=== PATIENT | female | born 1995 | race Caucasian/White ===

== ENCOUNTER 2019-11-30 12:33 | Emergency (ER) | payer OTHER, SELFPAY ==
[2019-11-30 12:40] VITALS: BP 104/72; PULSE 124; RESP 20; TEMP 38.6; O2SAT 100
--- NOTE | 2019-11-30 13:23 | ED.GENADULT ---
HPI - General Adult General Chief complaint: Upper Respiratory Infection Stated complaint: Cold/ Flu symptoms Time Seen by Provider: 11/30/19 13:23 Source: patient and RN notes reviewed Mode of arrival: ambulatory Limitations: no limitations History of Present Illness HPI narrative: This is a 24 years old female presents to the office for an evaluation of flu like symptoms since last night. Symptoms include head congestion, feverish, cough, and scratchy throat. Her boy friend test positive for influenza A in the office today. She admits to smoking half a pack a day. No treatment prior to arrival, patient requests a ibuprofen prescription because she is unemployed. Related Data Allergies Allergy/AdvReac Type Severity Reaction Status Date / Time Penicillins Allergy Unknown Hives / Verified 11/30/19 12:58 Red Face tramadol Allergy Unknown Nausea Verified 11/30/19 12:58 Review of Systems Review of Systems: Narrative: CONSTITUTIONAL:Reports fever, chills, sweats. ENT: Reports rhinorrhea, congestion, sore throat CARDIOVASCULAR: Denies chest pain RESPIRATORY: Reports cough GASTROINTESTINAL: Denies abdominal pain, nausea, vomiting, diarrhea. GENITOURINARY: Denies urinary symptoms or discharge SKIN: Denies rash MUSCULOSKELETAL: Denies acute back pain NEUROLOGIC: Denies lightheaded PMFSH Surgical History Surgical History (Updated 11/30/19 @ 13:24 by APOLINAR Martinez) H/O section Hx of appendectomy Social History Social History (Updated 11/30/19 @ 13:30 by APOLINAR Martinez) Smoking status: Current every day smoker Comments At time of signature, I agree with nursing past medical, surgical, social and family history. There is no relevant family history pertinent to the presenting complaint. Exam Narrative: Exam Narrative: GENERAL: This is a well-nourished, well-developed patient, in no apparent distress. EYES: Sclera clear/white. Vision is grossly intact. EARS: External ears normal, auditory canals clear and without drainage, TMs normal without perforation. Hearing grossly intact. NOSE: External nose normal with no obvious nasal discharge, nares without redness, no rhinorrhea. THROAT: Mucous membranes moist, posterior pharynx pink with drainage NECK: Neck supple, non-tender without lymphadenopathy, masses or thyromegaly. CARDIOVASCULAR: Regular rate and rhythm without murmurs, gallops, or rubs. RESPIRATORY: Clear to auscultation. Breath sounds equal bilaterally. No wheezes, rales, or rhonchi. Occasional cough noted during examination. GASTROINTESTINAL: Abdomen soft, non-tender, nondistended. Bowel sounds are active. No hepato-splenomegaly, or palpable masses. No guarding. SKIN: warm, intact with no suspicious lesions or rash, good texture and turgor. NEURO: awake, alert, and oriented to person, place and time. There were no obvious focal neurologic abnormalities. Steady gait Zhou Coma Scale Eye Opening: Spontaneous 4 Zhou Coma Scale Motor: Obeys Commands 6 [place] Coma Scale Verbal: Oriented 5 Course Vital Signs Vital signs: Vital Signs Temperature 101.5 F H 11/30/19 12:40 Pulse Rate 124 H 11/30/19 12:40 Respiratory Rate 11/30/19 12:40 Blood Pressure 104/72 11/30/19 12:40 Pulse Oximetry 100 11/30/19 12:40 Temperature 101.5 F H 11/30/19 12:40 Pulse Rate 124 H 11/30/19 12:40 Respiratory Rate 11/30/19 12:40 Blood Pressure 104/72 11/30/19 12:40 Pulse Oximetry 100 11/30/19 12:40 Medical Decision Making MDM Narrative Medical decision making narrative: Discharge instructions reviewed with patient, as well as provided in writing per nursing staff. The instructions also include specific and strict return/GO TO THE ER as well as f/u information. All questions have been answered, and the patient deny any further questions with discharge and discharge plan. Differential Diagnosis Differential Diagnosis: pneumonia, Allergic Rhinitis, Upper respirat
== END 2019-11-30 13:35 | disposition home or self-care (01) ==
PROVIDERS: Emergency Provider Nurse Practitioner
DX: J06.9 Acute upper respiratory infection, unspecified (principal)
CPT/HCPCS: 87804; 99213; G0463

== ENCOUNTER 2020-02-02 17:26 | Emergency (ER) | payer OTHER, SELFPAY ==
--- NOTE | 2020-02-02 17:40 | PC.NURSE ---
pt was here with pelvic pain, and was under the impression that we could do an ultrasound here, but when i informed pt that the provider would see her and if she thinks that she may need to go to the er, we could get her transferred to a local er. pt decided to leave while i was getting her blood pressure, she states that she would just go to the er. pt left the triage room ambulatory and stable. left without being seen or really triaged.
== END 2020-02-02 17:40 | disposition left against medical advice (07) ==
PROVIDERS: PCP Physician Assistant
DX: Z53.21 Procedure and treatment not carried out due to patient leaving prior to being seen by health care provider (principal)
CPT/HCPCS: 99199

== ENCOUNTER 2020-11-28 19:36 | Emergency (ER) | payer OTHER, SELFPAY ==
[2020-11-28 19:40] VITALS: BP 148/88; PULSE 92; RESP 18; TEMP 36.1; O2SAT 100
--- NOTE | 2020-11-28 20:30 | PC.NURSE ---
pt refused to havr IV or Blood Drawn, aware, po meds ordered.
[2020-11-28] MEDS: HYDROcodone/acetaminophen (*CRX) 5-325 MG TABLET 1 TAB PO (20:33)
[2020-11-28] MEDS: ONDANSETRON HCL ODT 4 MG TABLET PO (20:34)
--- NOTE | 2020-11-28 20:39 | ED.GENADULT ---
HPI - General Adult General Chief complaint: Abdominal Pain Stated complaint: abd pain, tooth abscess Time Seen by Provider: 11/28/20 19:39 Source: patient Mode of arrival: ambulatory Limitations: no limitations History of Present Illness HPI narrative: Patient is a 25-year-old female who presents to emergency department for evaluation of abdominal pain and dental pain patient has been having dental pain along the left lower jawline with swelling for the last several days noting history of gross dental decay has not taken anything for her symptoms also noting for the last couple of days having some GI upset. Patient denies vomiting diarrhea patient does note constipation. Patient notes just prior to arrival she had passed some gas with improvement of her discomfort. On arrival patient is refusing IV or any blood work and does not wish for this at this time. Related Data Allergies Allergy/AdvReac Type Severity Reaction Status Date / Time Penicillins Allergy Unknown Hives / Verified 11/28/20 19:41 Red Face tramadol Allergy Unknown Nausea Verified 11/28/20 19:41 Review of Systems Review of Systems: All systems reviewed & are unremarkable except as noted in HPI and below PMFSH Surgical History Surgical History H/O section Hx of appendectomy Social History Social History Smoking status: Current every day smoker Exam Narrative: Exam Narrative: GENERAL: Well-appearing, well-nourished, and in no acute distress. HEAD: Normocephalic, atraumatic. EYES: PERRLA and EOMI. ENT: Nares clear, no rhinorrhea or epistaxis. Mucous membranes moist. Gross dental caries with slight swelling along the left lower jawline. NECK: Supple. No adenopathy or masses. CHEST: Clear to auscultation. No respiratory distress. No wheezes rales or rhonchi HEART: Regular rate and rhythm. No murmur heard. Normal peripheral pulses. ABDOMEN: Soft, mild tenderness of the abdomen no rebound or guarding, nondistended EXTREMITIES: Normal range of motion. No edema. SKIN: Warm, dry, no rash. NEURO: No focal deficits. Alert and oriented x3. Cranial nerves II through XII grossly intact PSYCH: Normal mood and affect. Course Course Emergency Course: Patient evaluated the emergency department for dental abscess abdominal pain patient refused any further evaluation such as blood work or IV the patient prefers to go home noting that after she passed gas she had felt better patient will be treated for dental abscess and potential for urinary tract infection patient is afebrile nontoxic-appearing no distress Vital Signs Vital signs: Vital Signs Temperature 97.0 F L 11/28/20 19:40 Pulse Rate 92 11/28/20 19:40 Respiratory Rate 18 11/28/20 19:40 Blood Pressure 148/88 H 11/28/20 19:40 Pulse Oximetry 100 11/28/20 19:40 Temperature 97.0 F L 11/28/20 19:40 Pulse Rate 92 11/28/20 19:40 Respiratory Rate 18 11/28/20 19:40 Blood Pressure 148/88 H 11/28/20 19:40 Pulse Oximetry 100 11/28/20 19:40 Medical Decision Making MDM Narrative Medical decision making narrative: Patients pain and complaint coupled with physical findings are consistent with dentalgia. There are no focal signs of space occupying lesions that are compromising to the airway. The floor of the mouth is soft with no signs of Lb Angina. Patient is without trismus or drooling and able to swallow secretions. Patient is felt appropriate for discharge home with dental follow up. Will also be treated for urinary tract infection Vital Signs Vital Signs: Vital Signs Temperature 97.0 F L 11/28/20 19:40 Pulse Rate 92 11/28/20 19:40 Respiratory Rate 18 11/28/20 19:40 Blood Pressure 148/88 H 11/28/20 19:40 Pulse Oximetry 100 11/28/20 19:40 Temperature 97.0 F L 11/28/20 19:40 Pulse Rate 92 11/28/20 19:40 Respiratory Rate 11/16
[2020-11-28 20:53] LABS: Add Urine Microscopic? YES; Appearance Urine Cloudy (Clear); Bacteria Urine Trace /hpf; Bilirubin Urine Negative (Negative); Blood Urine Negative (Negative); Color Urine Yellow (Yellow); Glucose Urine UA Negative (Negative); Ketones Urine Negative (Negative); Leukocyte Esterase Ur Negative LEU/UL (Negative); Mucus Urine Rare /lpf; Nitrate Urine Negative (Negative); Protein Urine Negative (Negative); Specific Grav Ur 1.017 (1.001-1.035); Squamous Epithelial Cell Urine Rare /hpf (Few); WBC Clumps Urine Present /HPF
[2020-11-28 21:45] VITALS: BP 131/85; PULSE 86; RESP 16; TEMP 36.7; O2SAT 100
== END 2020-11-28 21:46 | disposition home or self-care (01) ==
PROVIDERS: Emergency Medicine Emergency Medical Services; Emergency Provider Emergency Medicine; PCP Physician Assistant
DX: K04.7 Periapical abscess without sinus (principal); R10.9 Unspecified abdominal pain; F17.200 Nicotine dependence, unspecified, uncomplicated
CPT/HCPCS: 81001; 81025; 87086; 87088; 87147; 99283; A9270

== ENCOUNTER 2021-12-28 19:53 | Emergency (ER) | payer OTHER, SELFPAY ==
--- NOTE | 2021-12-28 19:55 | ED.SKABFB ---
HPI - Skin/Abscess/Foreign Bdy General Chief complaint: Skin/Abscess/Foreign Body Stated complaint: bite rivas on legs Time Seen by Provider: 12/28/21 19:55 Source: patient and RN notes reviewed History of Present Illness HPI narrative: Patient is a 26-year-old female presents the urgent care with complaints of possible bug bites to the left inner thigh and right upper thigh. Patient states that it started approximately 3 or 4 days ago and increased in pain. Patient has not done anything for her pain prior to arrival. Denies any fevers, nausea, vomiting. Denies of any history of staph. No other acute complaints. No acute distress noted. Patient aware the plan of care. Some parts of this dictation were generated by voice recognition software and may contain typographical and/or grammatical inaccuracies. Related Data Allergies Allergy/AdvReac Type Severity Reaction Status Date / Time Penicillins Allergy Unknown Hives / Verified 12/28/21 20:00 Red Face tramadol Allergy Unknown Nausea Verified 12/28/21 20:00 Review of Systems Review of Systems: CONSTITUTIONAL: Denies fever, chills, or sweats. EYES: Denies visual changes, redness, or discharge. ENT: Denies rhinorrhea, congestion, sore throat, or otalgia. CARDIOVASCULAR: Denies chest pain, palpitations, or edema. RESPIRATORY: Denies cough or dyspnea. GASTROINTESTINAL: Denies abdominal pain, nausea, vomiting, or diarrhea. GENITOURINARY: Denies dysuria or hematuria. SKIN: Reports of bite rivas to right upper thigh and left inner thigh MUSCULOSKELETAL: Denies back pain, joint pain, or myalgia. NEUROLOGIC: Denies headache, numbness, or weakness. All other systems reviewed are negative, except as documented in HPI. PMFSH Surgical History Surgical History H/O section Hx of appendectomy Social History Social History Smoking status: Current every day smoker Comments At the time of my signature, I reviewed and agree with the nursing past medical, surgical, social, and family history. There is no relevant family history pertinent to the patient complaint. Exam Narrative: GENERAL: This is a well-nourished, well-developed patient, in no apparent distress. HEAD: normocephalic, atraumatic. EYES: PERRL. Sclera clear/white. Vision is grossly intact. EARS: External ears normal NOSE: External nose normal with no obvious nasal discharge, nares without redness, no rhinorrhea. THROAT: Mucous membranes moist NECK: Neck supple SKIN: 5 x 5 cm area of erythema and firmness to a 4 x 3 cm folliculitis to the upper left inner thigh. 2 x 2 centimeter raised folliculitis to the right gluteal fold NEURO: awake, alert, and oriented to person, place and time. There were no obvious focal neurologic abnormalities. EXTREMITIES: No clubbing, cyanosis, or edema. Course Course Level of Care: Express Care Visit Vital Signs Vital signs: Vital Signs Temperature 98 F 12/28/21 20:02 Pulse Rate 100 12/28/21 20:02 Respiratory Rate 16 12/28/21 20:02 Blood Pressure 116/77 12/28/21 20:02 Pulse Oximetry 98 12/28/21 20:02 Temperature 98 F 12/28/21 20:02 Pulse Rate 100 12/28/21 20:02 Respiratory Rate 16 12/28/21 20:02 Blood Pressure 116/77 12/28/21 20:02 Pulse Oximetry 98 12/28/21 20:02 Reviewed MDM - Skin/Abscess/Foreign Bdy MDM Narrative Medical decision making narrative: Advised the patient not to try to open or squeeze on the areas. May use warm compress as needed for comfort. May also use ice as needed. Use Tylenol/ibuprofen as needed for pain. Complete the oral antibiotic regimen as prescribed. Be sure to eat and drink with medication. If you develop any increase in pain associated fever, nausea or vomiting?go to the emergency room. Do not shave in the areas until complete resolution. Follow-up with your PCP within 2 to 5 days or for worseni
[2021-12-28 20:02] VITALS: BP 116/77; PULSE 100; RESP 16; TEMP 36.6; O2SAT 98
== END 2021-12-28 20:09 | disposition home or self-care (01) ==
PROVIDERS: Emergency Provider Nurse Practitioner Family; PCP Physician Assistant
DX: L73.9 Follicular disorder, unspecified (principal); F17.200 Nicotine dependence, unspecified, uncomplicated
CPT/HCPCS: 99213; G0463

== ENCOUNTER 2022-09-22 19:26 | Emergency (ER) | payer OTHER, SELFPAY ==
--- NOTE | 2022-09-22 19:29 | ED.URI ---
HPI - URI/Sore Throat General Chief Complaint: Upper Respiratory Infection Stated Complaint: Cough Time Seen by Provider: 09/22/22 19:29 Source: patient and RN notes reviewed History of Present Illness HPI Narrative: patient is a 27-year-old female who presents to urgent care with complaints of a cough since Monday. Patient states that she was at the [facility] and everyone she was with got sick. Patient states she felt better Monday, and then again worse this morning. Patient states that she has also had a sore throat that developed this morning. Patient denies any fevers, nausea or vomiting. Patient has not taken anything [id number] for her symptoms. No other acute complaints. No acute distress noted. Patient aware of the plan of care. Some parts of this dictation were generated by voice recognition software and may contain typographical and/or grammatical inaccuracies. Related Data Allergies Allergy/AdvReac Type Severity Reaction Status Date / Time Penicillins Allergy Unknown Hives / Verified 09/22/22 19:38 Red Face tramadol Allergy Unknown Nausea Verified 09/22/22 19:38 Review of Systems Review of Systems: CONSTITUTIONAL: Denies fever, chills, or sweats. EYES: Denies visual changes, redness, or discharge. ENT: Reports of drainage, sore throat CARDIOVASCULAR: Denies chest pain, palpitations, or edema. RESPIRATORY: reports a persistent cough without dyspnea GASTROINTESTINAL: Denies abdominal pain, nausea, vomiting, or diarrhea. GENITOURINARY: Denies dysuria or hematuria. SKIN: Denies rash or itching. MUSCULOSKELETAL: Denies back pain, joint pain, or myalgia. NEUROLOGIC: Denies headache, numbness, or weakness. All other systems reviewed are negative, except as documented in HPI. PMFSH Surgical History Surgical History H/O section Hx of appendectomy Social History Social History Smoking status: Current every day smoker Comments At the time of my signature, I reviewed and agree with the nursing past medical, surgical, social, and family history. There is no relevant family history pertinent to the patient complaint. Exam Narrative: GENERAL: This is a well-nourished, well-developed patient, in no apparent distress. HEAD: normocephalic, atraumatic. EYES: PERRL. Sclera clear/white. Vision is grossly intact. EARS: External ears normal, auditory canals clear and without drainage, TMs normal without perforation. Hearing grossly intact. NOSE: External nose normal with no obvious nasal discharge, nares without redness, clear/yellow rhinorrhea. THROAT: Mucous membranes moist, posterior pharynx clear. mild postnasal drainage NECK: Neck supple, non-tender without lymphadenopathy CARDIOVASCULAR: Regular rate and rhythm without murmurs, gallops, or rubs. RESPIRATORY: Clear to auscultation. Breath sounds equal bilaterally. No wheezes, rales, or rhonchi. SKIN: warm, intact with no suspicious lesions or rash, good texture and turgor. NEURO: awake, alert, and oriented to person, place and time. There were no obvious focal neurologic abnormalities. EXTREMITIES: No clubbing, cyanosis, or edema. Course Course Level of Care: Express Care Visit Vital Signs Vital signs: Vital Signs Temperature 98.2 F 09/22/22 19:38 Pulse Rate 82 09/22/22 19:38 Respiratory Rate 16 09/22/22 19:38 Blood Pressure 114/61 09/22/22 19:38 Pulse Oximetry 100 09/22/22 19:38 Oxygen Delivery Room Air 09/22/22 19:38 Temperature 98.2 F 09/22/22 19:38 Pulse Rate 82 09/22/22 19:38 Respiratory Rate 16 09/22/22 19:38 Blood Pressure 114/61 09/22/22 19:38 Pulse Oximetry 100 09/22/22 19:38 Oxygen Delivery Room Air 09/22/22 19:38 reviewed MDM - URI/Sore Throat MDM Narrative Medical decision making narrative: due to the lack of resources, unable to test for i
[2022-09-22 19:38] VITALS: BP 114/61; PULSE 82; RESP 16; TEMP 36.8; O2SAT 100
== END 2022-09-22 19:47 | disposition home or self-care (01) ==
PROVIDERS: Emergency Provider Nurse Practitioner Family; PCP Physician Assistant
DX: J02.0 Streptococcal pharyngitis (principal); F17.200 Nicotine dependence, unspecified, uncomplicated
CPT/HCPCS: 87081; 87147; 99213; G0463